=== PATIENT | female | born 1930 | race Caucasian/White ===

== ENCOUNTER → 2016-03-26 | Outpatient (CLI) | payer MEDICARE, OTHER ==
[~2016-03-26] MED LIST: ALBUTEROL2.5 MG/3 M IH; MACRODANTIN50 MG/CA1 PO; OXYCONTIN20 MG PO; PREDNISONE10 MG PO; RANITIDINE 150150 MG PO; SPIRIVA HANDIH18 MCG IH; SYNTHROID0.025 MG PO; TAMIFLU 75MG75 MG PO; VENTOLIN0.09 MG IH
== END ==
LOC: RAD 09:45
DX: R63.4 Abnormal weight loss (principal); J44.9 Chronic obstructive pulmonary disease, unspecified; M54.5 Low back pain; N30.00 Acute cystitis without hematuria; M43.17 Spondylolisthesis, lumbosacral region; M51.36 Other intervertebral disc degeneration, lumbar region; M41.86 Other forms of scoliosis, lumbar region
CPT/HCPCS: 15899

== ENCOUNTER → 2016-03-27 | Outpatient (CLI) | payer MEDICARE, OTHER | LOC: RAD 07:09 | DX: M54.5 Low back pain (principal) | CPT/HCPCS: A9579 ==

== ENCOUNTER → 2016-04-19 | Day surgery (SDC) | payer MEDICARE, OTHER ==
[2015-02-01 21:59] VITALS: BP 127/49
== END ==
LOC: MSO 09:21
DX: M51.36 Other intervertebral disc degeneration, lumbar region (principal)

== ENCOUNTER → 2016-04-23 | Day surgery (SDC) | payer MEDICARE, OTHER | LOC: MSO 09:13 | DX: M51.36 Other intervertebral disc degeneration, lumbar region (principal) | CPT/HCPCS: J3301 ==

== ENCOUNTER → 2016-05-14 | Day surgery (SDC) | payer MEDICARE, OTHER | LOC: MSO 09:22 | DX: M51.36 Other intervertebral disc degeneration, lumbar region (principal) | CPT/HCPCS: J3301 ==

== ENCOUNTER → 2016-12-31 | Outpatient (CLI) | payer MEDICARE, OTHER ==
[2015-02-01 21:59] VITALS: BP 127/49
[2016-12-31 15:56] LABS: HEMATOCRIT 41.2 % (37.0-47.0); HEMOGLOBIN 13.3 g/dL (12.5-16.0); MEAN PLATELET VOLUME 10.6 fl (7.4-10.4); RED BLOOD COUNT 4.59 M/mm3 (4.10-5.30); RED CELL DISTRIBUTION WIDTH 14.5 % (11.5-14.5); WHITE BLOOD COUNT 8.1 K/mm3 (4.8-10.8)
[2016-12-31 16:43] LABS: ALBUMIN 4.3 g/dL (3.5-5.0); BUN/CREATININE RATIO 21.7 (6.0-26.0); CALCIUM 10.2 mg/dL (8.4-10.2); POTASSIUM 4.4 mmol/L (3.6-5.0); TOTAL BILIRUBIN 0.5 mg/dL (0.2-1.3); TOTAL PROTEIN 7.9 g/dL (6.3-8.2)
== END ==
LOC: LAB 15:15
PROVIDERS: Family Medicine
DX: E11.9 Type 2 diabetes mellitus without complications (principal)

== ENCOUNTER → 2018-03-04 | Outpatient (CLI) | payer MEDICARE, OTHER ==
[2015-02-01 21:59] VITALS: BP 127/49
== END ==
LOC: LAB 16:55 → RAD 16:55
DX: R05 Cough (principal); R06.2 Wheezing; J98.8 Other specified respiratory disorders

== ENCOUNTER → 2018-03-12 | Outpatient (CLI) | payer MEDICARE, OTHER ==
[2015-02-01 21:59] VITALS: BP 127/49
== END ==
LOC: RAD 15:16
DX: J98.4 Other disorders of lung (principal); R06.02 Shortness of breath

== ENCOUNTER → 2018-03-16 | Outpatient (CLI) | payer MEDICARE, OTHER ==
[2015-02-01 21:59] VITALS: BP 127/49
== END ==
LOC: RAD 11:59
DX: R05 Cough (principal)

== ENCOUNTER 2018-03-24 08:37 | Emergency (ER) | payer MEDICARE, OTHER ==
[~2018-03-24 08:37] MED LIST changes: +ACETAMINOPHEN-O1 TAB PO; -OXYCONTIN20 MG PO
[2018-03-24 09:04] LABS: EOS % 0.3 % (1.0-5.0); HEMATOCRIT 40.2 % (37.0-47.0); HEMOGLOBIN 12.8 g/dL (12.5-16.0); LYMPH# 1.6 (1.50-4.00); MEAN CELL VOLUME 90 fl (78-100); MEAN CORPUSCULAR HEMOGLOBIN 29 pg (27-31); MEAN CORPUSCULAR HGB CONC 32 g/dL (33-37); MEAN PLATELET VOLUME 9.9 fl (7.4-10.4); MONO # 1.1 (0.20-0.80); NEU # 7.5 (1.40-6.50); PLATELET COUNT 212 K/mm3 (130-400); RED BLOOD COUNT 4.47 M/mm3 (4.10-5.30); WHITE BLOOD COUNT 10.2 K/mm3 (4.8-10.8)
[2018-03-24 09:20] LABS: ALBUMIN 3.5 g/dL (3.5-5.0); CALCIUM 8.9 mg/dL (8.4-10.2); POTASSIUM 4.2 mmol/L (3.6-5.0); TOTAL BILIRUBIN 0.9 mg/dL (0.2-1.3); TOTAL PROTEIN 6.4 g/dL (6.3-8.2)
[2018-03-24 09:32] LABS: D-DIMER 0.56 mg/L FEU (0.15-0.50); TROPONIN-I < 0.03 ng/mL (0.00-0.06)
[2018-03-24] MEDS ORDERED: ALBUTEROL2.5 MG/3 M IH (09:36)
[2018-03-24] MEDS ORDERED: BENADRYL PO (09:36)
[2018-03-24] MEDS ORDERED: BENADRYL EXTRA STR2% TOP (09:36)
[2018-03-24] MEDS ORDERED: DELSYM30 MG/5 M1 PO (09:37)
[2018-03-24] MEDS ORDERED: DULCOLAX S10 MG/SUPP RC (09:37)
[2018-03-24] MEDS ORDERED: IPRATROPIUM BROM3 M1 IH (10:43)
[2018-03-24] MEDS ORDERED: FLEET ENEM1 BOT/133 RC (10:43)
[2018-03-24] MEDS ORDERED: FLUTICASON0.05 MG/AC NS (10:44)
[2018-03-24] MEDS ORDERED: GOOD NEIGH1200 MG/15 PO (10:46)
[2018-03-24] MEDS ORDERED: LIDOCAINE HC20 MG/M1 PO (10:46)
[2018-03-24] MEDS ORDERED: NEURONTIN300 M1 PO (10:47)
[2018-03-24] MEDS ORDERED: MELOXICAM7.5 MG PO (10:47)
[2018-03-24] MEDS ORDERED: MIRALAX119 GM PO (10:47)
[2018-03-24] MEDS ORDERED: PROAIR HFA0.09 MG/AC IH (10:49)
[2018-03-24] MEDS ORDERED: PROMETHAZINE H118 ML PO (10:50)
[2018-03-24] MEDS ORDERED: SENOKOT8.6 MG PO (10:51)
[2018-03-24] MEDS ORDERED: TYLENOL EXTRA500 M2 PO (10:52)
[2018-03-24 12:20] LABS: PH-URINE 7.5 (5.0 - 8.0); URINE APPEARANCE HAZY; URINE BILIRUBIN NEGATIVE (NEGATIVE); URINE BLOOD TRACE (NEGATIVE); URINE COLOR YELLOW; URINE GLUCOSE NEGATIVE (NEGATIVE); URINE KETONE NEGATIVE (NEGATIVE); URINE LEUKOCYTE ESTERASE NEGATIVE (NEGATIVE); URINE MUCUS PRESENT (NOT PRESENT); URINE NITRATE NEGATIVE (NEGATIVE); URINE PROTEIN(semi-quant) TRACE mg/dL (NEGATIVE); URINE UROBILINOGEN NORMAL (NORMAL); URINE WBC 0-1 /hpf (0-3)
[2018-03-24 12:57] VITALS: BP 111/51
== END 2018-03-24 12:58 | disposition other institution (70) ==
LOC: ED 08:37
PROVIDERS: Nurse Practitioner
DX: J44.1 Chronic obstructive pulmonary disease with (acute) exacerbation (principal); J18.9 Pneumonia, unspecified organism; I63.9 Cerebral infarction, unspecified; J45.909 Unspecified asthma, uncomplicated; Z79.51 Long term (current) use of inhaled steroids; Z96.642 Presence of left artificial hip joint; Z87.891 Personal history of nicotine dependence; Z90.710 Acquired absence of both cervix and uterus; Z90.49 Acquired absence of other specified parts of digestive tract; Z98.890 Other specified postprocedural states
CPT/HCPCS: J7030; Q9967

== ENCOUNTER 2018-03-24 12:22 | Inpatient (IN) | payer MEDICARE, OTHER ==
[~2018-03-24] VITALS: Ht 167.6 cm; Wt 69.4 kg
[~2018-03-24 12:22] MED LIST changes: +BENADRYL EXTRA STR2% TOP; +BENADRYL PO; +DELSYM30 MG/5 M1 PO; +DULCOLAX S10 MG/SUPP RC; +FLEET ENEM1 BOT/133 RC; +FLUTICASON0.05 MG/AC NS; +GOOD NEIGH1200 MG/15 PO; +IPRATROPIUM BROM3 M1 IH; +LIDOCAINE HC20 MG/M1 PO; +MELOXICAM7.5 MG PO; +MIRALAX119 GM PO; +NEURONTIN300 M1 PO; +PROAIR HFA0.09 MG/AC IH; +PROMETHAZINE H118 ML PO; +SENOKOT8.6 MG PO; +TYLENOL EXTRA500 M2 PO
[2018-03-24 13:35] VITALS: BP 111/51
[2018-03-24 14:55] VITALS: BP 11/65
[2018-03-24 18:47] VITALS: BP 103/65
[2018-03-24 23:10] VITALS: BP 149/69
[2018-03-25 03:15] VITALS: BP 146/74
[2018-03-25 06:16] LABS: HEMATOCRIT 39.6 % (37.0-47.0); HEMOGLOBIN 12.8 g/dL (12.5-16.0); MEAN CELL VOLUME 88 fl (78-100); MEAN CORPUSCULAR HEMOGLOBIN 28 pg (27-31); MEAN CORPUSCULAR HGB CONC 32 g/dL (33-37); MEAN PLATELET VOLUME 10.2 fl (7.4-10.4); PLATELET COUNT 197 K/mm3 (130-400); RED BLOOD COUNT 4.51 M/mm3 (4.10-5.30); RED CELL DISTRIBUTION WIDTH 14.4 % (11.5-14.5); WHITE BLOOD COUNT 11.4 K/mm3 (4.8-10.8)
[2018-03-25 06:22] VITALS: BP 158/75
[2018-03-25 06:30] LABS: ALBUMIN 3.6 g/dL (3.5-5.0); CALCIUM 9.1 mg/dL (8.4-10.2); POTASSIUM 4.4 mmol/L (3.6-5.0); TOTAL BILIRUBIN 0.5 mg/dL (0.2-1.3); TOTAL PROTEIN 6.7 g/dL (6.3-8.2)
[2018-03-25 06:44] LABS: NEUTROPHILS 93 % (42-75)
[2018-03-25 06:45] LABS: LYMPHOCYTE 5 % (20-51); MONOCYTE 2 % (3-10)
[2018-03-25 11:04] VITALS: BP 98/59
[2018-03-25 15:08] VITALS: BP 97/55
[2018-03-25 18:16] VITALS: BP 95/68
[2018-03-25 23:14] VITALS: BP 119/57
[2018-03-26] VITALS (7 sets, daily range): BP systolic 109–165; BP diastolic 42–76
[2018-03-26 07:09] LABS: HEMATOCRIT 36.4 % (37.0-47.0); HEMOGLOBIN 11.8 g/dL (12.5-16.0); MEAN CELL VOLUME 89 fl (78-100); MEAN CORPUSCULAR HEMOGLOBIN 29 pg (27-31); MEAN CORPUSCULAR HGB CONC 32 g/dL (33-37); MEAN PLATELET VOLUME 10.6 fl (7.4-10.4); PLATELET COUNT 181 K/mm3 (130-400); RED BLOOD COUNT 4.11 M/mm3 (4.10-5.30); RED CELL DISTRIBUTION WIDTH 14.3 % (11.5-14.5); WHITE BLOOD COUNT 13.3 K/mm3 (4.8-10.8)
[2018-03-26 07:42] LABS: CALCIUM 8.7 mg/dL (8.4-10.2); POTASSIUM 4.1 mmol/L (3.6-5.0)
[2018-03-26 07:43] LABS: BAND 1 % (0-10); LYMPHOCYTE 2 % (20-51); MONOCYTE 3 % (3-10); NEUTROPHILS 94 % (42-75)
[2018-03-27 02:42] VITALS: BP 177/78
[2018-03-27 04:31] LABS: HEMATOCRIT 33.2 % (37.0-47.0); HEMOGLOBIN 10.7 g/dL (12.5-16.0); MEAN CELL VOLUME 88 fl (78-100); MEAN CORPUSCULAR HEMOGLOBIN 29 pg (27-31); MEAN CORPUSCULAR HGB CONC 32 g/dL (33-37); MEAN PLATELET VOLUME 10.4 fl (7.4-10.4); PLATELET COUNT 168 K/mm3 (130-400); RED BLOOD COUNT 3.76 M/mm3 (4.10-5.30); RED CELL DISTRIBUTION WIDTH 14.2 % (11.5-14.5); WHITE BLOOD COUNT 10.9 K/mm3 (4.8-10.8)
[2018-03-27 04:47] LABS: CALCIUM 8.5 mg/dL (8.4-10.2); POTASSIUM 3.5 mmol/L (3.6-5.0)
[2018-03-27 05:24] LABS: LYMPHOCYTE 5 % (20-51); MONOCYTE 1 % (3-10); NEUTROPHILS 94 % (42-75)
[2018-03-27 06:30] VITALS: BP 184/80
[2018-03-27 11:01] VITALS: BP 140/56
[2018-03-27 14:50] VITALS: BP 167/69
[2018-03-27 18:40] VITALS: BP 157/67
[2018-03-27 22:38] VITALS: BP 189/87
[2018-03-28 02:47] VITALS: BP 184/79
[2018-03-28 06:23] VITALS: BP 182/76
[2018-03-28 11:00] VITALS: BP 137/65
[2018-03-28 15:20] VITALS: BP 195/73
[2018-03-28 18:29] VITALS: BP 193/64
[2018-03-28 23:35] VITALS: BP 182/74
[2018-03-29 03:19] VITALS: BP 195/86
[2018-03-29 06:21] VITALS: BP 180/80
[2018-03-29] MEDS ORDERED: CIPRO 500MG TA500 MG PO (10:57)
[2018-03-29] MEDS ORDERED: DESENEX2% TP (10:57)
[2018-03-29] MEDS ORDERED: PREDNISONE10 MG PO (10:57)
[2018-03-29 11:12] VITALS: BP 180/80
[2018-03-29 11:17] VITALS: BP 159/77
== END 2018-03-29 13:50 | DRG 194 ==
LOC: MED/SURG 12:22
PROVIDERS: Nurse Practitioner Family; Physician Assistant; ADMIT Nurse Practitioner
DX: J18.9 Pneumonia, unspecified organism (principal); J44.0 Chronic obstructive pulmonary disease with (acute) lower respiratory infection; J44.1 Chronic obstructive pulmonary disease with (acute) exacerbation; B37.0 Candidal stomatitis; Z66 Do not resuscitate; E11.9 Type 2 diabetes mellitus without complications; I25.10 Atherosclerotic heart disease of native coronary artery without angina pectoris; Z87.891 Personal history of nicotine dependence; Z85.030 Personal history of malignant carcinoid tumor of large intestine; E78.5 Hyperlipidemia, unspecified; Z86.73 Personal history of transient ischemic attack (TIA), and cerebral infarction without residual deficits; B37.3 Candidiasis of vulva and vagina; E87.6 Hypokalemia
CPT/HCPCS: A4216; J0456; J0696; J0744; J1650; J2543; J2930; J7030; J7050; J7512

== ENCOUNTER 2018-06-30 11:29 | Emergency (ER) | payer MEDICARE, OTHER ==
[~2018-06-30] VITALS: Wt 73.2 kg
[~2018-06-30 11:29] MED LIST changes: +CIPRO 500MG TA500 MG PO; +DESENEX2% TP; +ZYRTEC ALLERGY10 MG PO
[2018-06-30 11:57] LABS: HEMATOCRIT 34.6 % (37.0-47.0); HEMOGLOBIN 10.7 g/dL (12.5-16.0); MEAN CELL VOLUME 82 fl (78-100); MEAN CORPUSCULAR HEMOGLOBIN 26 pg (27-31); MEAN CORPUSCULAR HGB CONC 31 g/dL (33-37); MEAN PLATELET VOLUME 11.3 fl (7.4-10.4); PLATELET COUNT 234 K/mm3 (130-400); RED CELL DISTRIBUTION WIDTH 15.9 % (11.5-14.5); WHITE BLOOD COUNT 13.6 K/mm3 (4.8-10.8)
[2018-06-30 12:13] LABS: ALBUMIN 3.8 g/dL (3.4-4.8); CALCIUM 9.3 mg/dL (8.4-10.2); POTASSIUM 3.9 mmol/L (3.5-5.1); TOTAL BILIRUBIN 0.6 mg/dL (0.2-1.2); TOTAL PROTEIN 7.5 g/dL (6.2-8.1)
[2018-06-30 12:16] LABS: LYMPHOCYTE 5 % (20-51); MONOCYTE 9 % (3-10); NEUTROPHILS 86 % (42-75)
[2018-06-30 13:20] LABS: PH-URINE 5.5 (5.0 - 8.0); URINE APPEARANCE HAZY; URINE BILIRUBIN NEGATIVE (NEGATIVE); URINE BLOOD TRACE (NEGATIVE); URINE COLOR YELLOW; URINE GLUCOSE NEGATIVE (NEGATIVE); URINE KETONE NEGATIVE (NEGATIVE); URINE LEUKOCYTE ESTERASE 2+ (NEGATIVE); URINE NITRATE NEGATIVE (NEGATIVE); URINE PROTEIN(semi-quant) TRACE mg/dL (NEGATIVE); URINE UROBILINOGEN NORMAL (NORMAL)
[2018-06-30 14:00] VITALS: BP 133/60
[2018-06-30] MEDS ORDERED: BENADRYL EXTRA STR2% TOP (14:38)
[2018-06-30] MEDS ORDERED: BENADRYL PO (14:39)
[2018-06-30] MEDS ORDERED: CETAPHIL MOISTU1 CRE TP (14:40)
[2018-06-30] MEDS ORDERED: DELSYM30 MG/5 M1 PO (14:42)
[2018-06-30] MEDS ORDERED: LIDOCAINE HCL PO (14:46)
[2018-06-30] MEDS ORDERED: PERCOCET 325 MG1 TA2 PO (14:47)
[2018-06-30] MEDS ORDERED: PROMETH-CODEIN 65 ML PO (14:49)
== END 2018-06-30 14:00 | disposition other institution (70) ==
LOC: ED 11:29
PROVIDERS: Nurse Practitioner Primary Care
DX: J44.1 Chronic obstructive pulmonary disease with (acute) exacerbation (principal); N39.0 Urinary tract infection, site not specified; E11.51 Type 2 diabetes mellitus with diabetic peripheral angiopathy without gangrene; I25.10 Atherosclerotic heart disease of native coronary artery without angina pectoris; F32.9 Major depressive disorder, single episode, unspecified; Z86.73 Personal history of transient ischemic attack (TIA), and cerebral infarction without residual deficits
CPT/HCPCS: A4216; J0696; J2930

== ENCOUNTER → 2018-09-03 | Outpatient (CLI) | payer MEDICARE, OTHER ==
[2018-07-03 15:14] VITALS: BP 121/53
[~2018-09-03] MED LIST changes: +CETAPHIL MOISTU1 CRE TP; +DELTASONE20 M1 PO; +LEVAQUIN 750MG750 M1 PO; +LIDOCAINE HCL PO; +PERCOCET 325 MG1 TA2 PO; +PROMETH-CODEIN 65 ML PO
== END ==
LOC: RAD 13:00
DX: K22.2 Esophageal obstruction (principal); K22.8 Other specified diseases of esophagus

== ENCOUNTER → 2018-09-16 | Outpatient (CLI) | payer MEDICARE, OTHER ==
[2018-07-03 15:14] VITALS: BP 121/53
[2018-09-16 06:39] LABS: EOS # 0.2 (0.04-0.40); EOS % 4.8 % (1.0-5.0); HEMATOCRIT 36.9 % (37.0-47.0); HEMOGLOBIN 11.6 g/dL (12.5-16.0); LYMPH# 1.6 (1.50-4.00); MEAN CELL VOLUME 81 fl (78-100); MEAN CORPUSCULAR HEMOGLOBIN 25 pg (27-31); MEAN CORPUSCULAR HGB CONC 31 g/dL (33-37); MEAN PLATELET VOLUME 10.4 fl (7.4-10.4); MONO # 0.5 (0.20-0.80); NEU # 2.6 (1.40-6.50); PLATELET COUNT 253 K/mm3 (130-400); RED BLOOD COUNT 4.58 M/mm3 (4.10-5.30); RED CELL DISTRIBUTION WIDTH 16.6 % (11.5-14.5)
[2018-09-16 06:53] LABS: ALBUMIN 3.7 g/dL (3.4-4.8); POTASSIUM 4.4 mmol/L (3.5-5.1); SODIUM 138 mmol/L (136-145)
[2018-09-16 06:55] LABS: CALCIUM 9.7 mg/dL (8.3-10.5)
[2018-09-16 06:56] LABS: GLUCOSE 108 mg/dL (65-105)
[2018-09-16 06:57] LABS: CARBON DIOXIDE 28 mmol/L (23-31)
[2018-09-16 06:58] LABS: TOTAL BILIRUBIN 0.3 mg/dL (0.2-1.2)
[2018-09-16 07:01] LABS: AST-SGOT 14 U/L (5-34)
[2018-09-16 07:02] LABS: ALT/SGPT 15 U/L (0-55)
== END ==
LOC: LAB 06:10
PROVIDERS: Physician Assistant
DX: E11.9 Type 2 diabetes mellitus without complications (principal); L03.90 Cellulitis, unspecified; B37.2 Candidiasis of skin and nail; R42 Dizziness and giddiness

== ENCOUNTER → 2018-10-01 | Day surgery (SDC) | payer MEDICARE, OTHER ==
[2018-07-03 15:14] VITALS: BP 121/53
== END ==
LOC: MSO 09:45
DX: K21.9 Gastro-esophageal reflux disease without esophagitis (principal); Z85.038 Personal history of other malignant neoplasm of large intestine; Z90.49 Acquired absence of other specified parts of digestive tract; Z88.6 Allergy status to analgesic agent; Z88.8 Allergy status to other drugs, medicaments and biological substances; Z90.710 Acquired absence of both cervix and uterus; Z87.891 Personal history of nicotine dependence; Z86.010 Personal history of colon polyps; Z86.73 Personal history of transient ischemic attack (TIA), and cerebral infarction without residual deficits
CPT/HCPCS: 00731; C1726; J2704; J7120

== ENCOUNTER → 2018-12-24 | Outpatient (CLI) | payer MEDICARE, OTHER ==
[2018-07-03 15:14] VITALS: BP 121/53
== END ==
LOC: RAD 11:51
DX: S82.61XA Displaced fracture of lateral malleolus of right fibula, initial encounter for closed fracture (principal)

== ENCOUNTER → 2019-02-03 | Outpatient (CLI) | payer MEDICARE, OTHER ==
[2018-07-03 15:14] VITALS: BP 121/53
== END ==
LOC: RAD 14:00
DX: G31.9 Degenerative disease of nervous system, unspecified (principal)

== ENCOUNTER → 2019-03-10 | Outpatient (CLI) | payer MEDICARE, OTHER ==
[2018-07-03 15:14] VITALS: BP 121/53
== END ==
LOC: RAD 09:24
DX: M19.011 Primary osteoarthritis, right shoulder (principal)

== ENCOUNTER → 2019-10-11 | Outpatient (CLI) | payer MEDICARE, OTHER ==
[2018-07-03 15:14] VITALS: BP 121/53
[2019-10-11 13:52] LABS: EOS # 0.2 (0.04-0.40); EOS % 2.7 % (1.0-5.0); HEMATOCRIT 37.5 % (37.0-47.0); HEMOGLOBIN 12.1 g/dL (12.5-16.0); LYMPH# 2.1 (1.50-4.00); MEAN CELL VOLUME 86 fl (78-100); MEAN CORPUSCULAR HEMOGLOBIN 28 pg (27-31); MEAN CORPUSCULAR HGB CONC 32 g/dL (33-37); MEAN PLATELET VOLUME 9.9 fl (7.4-10.4); MONO # 0.6 (0.20-0.80); NEU # 4.1 (1.40-6.50); PLATELET COUNT 253 K/mm3 (130-400); RED BLOOD COUNT 4.37 M/mm3 (4.10-5.30); RED CELL DISTRIBUTION WIDTH 15.3 % (11.5-14.5)
[2019-10-11 14:02] LABS: ALBUMIN 3.9 g/dL (3.4-4.8); POTASSIUM 4.6 mmol/L (3.5-5.1)
[2019-10-11 14:03] LABS: CALCIUM 8.7 mg/dL (8.3-10.5)
[2019-10-11 14:04] LABS: TOTAL PROTEIN 6.8 g/dL (6.2-8.1)
[2019-10-11 14:06] LABS: TOTAL BILIRUBIN 0.2 mg/dL (0.2-1.2)
[2019-10-11 22:36] LABS: URINE APPEARANCE CLOUDY; URINE COLOR YELLOW
[2019-10-11 22:37] LABS: URINE BILIRUBIN NEGATIVE (NEGATIVE); URINE BLOOD TRACE (NEGATIVE); URINE GLUCOSE NEGATIVE (NEGATIVE); URINE KETONE NEGATIVE (NEGATIVE); URINE LEUKOCYTE ESTERASE 2+ (NEGATIVE); URINE NITRATE NEGATIVE (NEGATIVE); URINE PROTEIN(semi-quant) TRACE mg/dL (NEGATIVE); URINE UROBILINOGEN NORMAL (NORMAL); URINE WBC 31-50 /hpf (0-3)
== END ==
LOC: LAB 13:42
PROVIDERS: Nurse Practitioner
DX: R05 Cough (principal); R06.82 Tachypnea, not elsewhere classified

== ENCOUNTER → 2019-11-04 | Outpatient (CLI) | payer MEDICARE, OTHER ==
[2018-07-03 15:14] VITALS: BP 121/53
[2019-11-04 07:18] LABS: URINE APPEARANCE CLEAR; URINE BILIRUBIN NEGATIVE (NEGATIVE); URINE BLOOD NEGATIVE (NEGATIVE); URINE COLOR YELLOW; URINE GLUCOSE NEGATIVE (NEGATIVE); URINE KETONE NEGATIVE (NEGATIVE); URINE LEUKOCYTE ESTERASE NEGATIVE (NEGATIVE); URINE NITRATE NEGATIVE (NEGATIVE); URINE PROTEIN(semi-quant) TRACE mg/dL (NEGATIVE); URINE UROBILINOGEN NORMAL (NORMAL)
== END ==
LOC: LAB 07:10
PROVIDERS: Physician Assistant
DX: N39.0 Urinary tract infection, site not specified (principal)

== ENCOUNTER → 2020-03-13 | Outpatient (CLI) | payer MEDICARE, OTHER ==
[2018-07-03 15:14] VITALS: BP 121/53
[2020-03-13 15:16] LABS: HEMATOCRIT 36.8 % (37.0-47.0); HEMOGLOBIN 11.3 g/dL (12.5-16.0); MEAN PLATELET VOLUME 10.7 fl (7.4-10.4); RED BLOOD COUNT 4.08 M/mm3 (4.10-5.30); RED CELL DISTRIBUTION WIDTH 14.1 % (11.5-14.5); WHITE BLOOD COUNT 6.3 K/mm3 (4.8-10.8)
[2020-03-13 15:20] LABS: ALBUMIN 3.5 g/dL (3.4-4.8); POTASSIUM 4.3 mmol/L (3.5-5.1)
[2020-03-13 15:21] LABS: CALCIUM 8.4 mg/dL (8.3-10.5)
[2020-03-13 15:22] LABS: TOTAL PROTEIN 6.1 g/dL (6.2-8.1)
[2020-03-13 15:37] LABS: TOTAL BILIRUBIN 0.1 mg/dL (0.2-1.2)
== END ==
LOC: LAB 14:35
PROVIDERS: Family Medicine
DX: E11.9 Type 2 diabetes mellitus without complications (principal)

== ENCOUNTER → 2020-03-13 | Outpatient (CLI) | payer MEDICARE, OTHER ==
[2018-07-03 15:14] VITALS: BP 121/53
== END ==
LOC: LAB 11:29
DX: E11.9 Type 2 diabetes mellitus without complications (principal)